=== PATIENT | female | born 1995 | race Caucasian/White ===

== ENCOUNTER 2017-11-29 21:20 | Emergency (ER) | payer OTHER ==
[~2017-11-29] VITALS: Ht 175.3 cm; Wt 103.3 kg
[2017-11-29 21:26] VITALS: TEMP 37.9; Ht 175.3 cm; Wt 103.3 kg
[2017-11-29] MEDS ORDERED: AMOX875T PO (21:55)
[2017-11-29] MEDS ORDERED: AMOXICIL/CLAVU 875MG HOME PACK PO ONE (22:00)
[2017-11-29 22:17] VITALS: BP 137/84; PULSE 76; O2SAT 98
--- NOTE | 2017-11-30 07:19 | EMERGENCY ROOM VISIT NOTE ---
History First contact with patient: 21:35 Chief Complaint: EAR PAIN Stated Complaint: SEVERE EAR PAIN, PRESSURE LT EAR History of Present Illness The patient is a 22 year old female who presents to the Emergency Room with complaints of worsening bilateral ear pain over the past several days. The patient states that about 12 hours ago she went to an urgent care clinic and was diagnosed with viral infection. She was given an inhaler, but states that her pain has significantly worsened since that visit. She has not taken anything [id number] for pain control. The patient considers his of usually healthy and is unable to rest because of the pain. She rates the discomfort a 7/10. She does not have chest pain, chest tightness, short of breath, or abdominal pain. Review of Systems More than 10 systems were reviewed and otherwise negative with the exception of history of present illness. Past Medical/Surgical History Medical Problems: (1) Anxiety Family History Heart disease Social History Smoking Status: Never Smoker Marital Status: single Housing Status: unknown Occupation Status: employed Current/Historical Medications Scheduled Amoxicillin & Pot Clavulanate (Augmentin 875-125 mg), 1 TAB PO BID Physical Exam Vital Signs Date Time Temp Pulse Resp B/P (MAP) Pulse Ox O2 Delivery O2 Flow Rate FiO2 11/29/17 22:17 76 137/84 98 11/29/17 21:26 37.9 89 20 138/82 97 Room Air Physical Exam VITALS: Vitals are noted on the nurse's note and reviewed by myself. Vital signs stable. GENERAL: Well-developed, well-nourished, white female, who is in no acute distress and resting comfortably. Patient is cooperative with the examination. HEAD: Positive bilateral maxillary sinus tenderness on percussion EARS: External ear normal. External auditory canals clear. The right TM is pearly. Left TM is with purulent material appreciated behind the TM. TM is not bulging. No mastoid tenderness. EYES: Pupils equal round and reactive to light and accommodation. Conjunctivae without injection, sclerae without icterus. Extraocular movements intact. NOSE: Patent, turbinates without inflammation or discharge. MOUTH: Mucous membranes moist. Tonsils are not enlarged. Pharynx without erythema, blood, or exudate. Uvula midline. Airway patent. NECK: Supple without nuchal rigidity. No lymphadenopathy. No thyromegaly. Cervical spine is nontender. HEART: Regular rate and rhythm without murmurs gallops or rubs. LUNGS: Clear to auscultation bilaterally without wheezes, rales or rhonchi. No retractions or accessory muscle use. Medical Decision & Procedures Medications Administered Medications (Trade) Dose Ordered Sig/Josemanuel Route Start Time Stop Time Status Last Admin Dose Admin Amoxicillin/ Clavulanate Potassium (Augmentin 875MG Home Pack) [facility] ONCE PO 11/29/17 22:00 11/29/17 22:01 DC 11/29/17 22:[address] [facility] ED Course Physical exam and history were performed. Nursing notes, EMR, and Medication List were personally reviewed. Patient appears to have left ear pain worsening over the past several hours. On examination she does have purulent appearing material behind the tympanic membrane. The TM itself is not with active infection, however the patient does have maxillary sinus tenderness on percussion. I suspect that she has an acute sinusitis causing her symptoms. The patient will be started on Augmentin and given a continuation prescription of the same. She is to follow with her primary care physician in the next few days for recheck. She was otherwise invited back here with any new, worsening, or concerning symptoms. The chart was completed utilizing [employer] Speech Voice Recognition Software. Grammatical errors, random word insertions, pronoun errors, and incomplete sentences are an occasional consequence of this system due to software limitations, ambient noise, and hardware issues. Any formal questions or concerns about the content, text, or information contained within the body of this dictation should be directly addressed to the provider for clarification. . Medical Decision Differential diagnosis includes, but is not limited to: Sinusitis, otitis, pharyngitis, viral infection, and others Impression Primary Impression: Acute sinusitis Additional Impression: Left ear pain Departure Information Dispostion Home / Self-Care Condition GOOD Prescriptions Amoxicillin & Pot Clavulanate (Augmentin 875-125 mg) 1 Tab Tab 1 TAB PO BID for 9 Days, #18 TAB Prov: Williams Mcneil PA-C 11/29/17 Forms HOME CARE DOCUMENTATION FORM, IMPORTANT VISIT INFORMATION Patient Instructions My [facility] Additional Instructions You were seen and evaluated today on an emergency basis only. This is not a substitute for, or an effort to provide, complete comprehensive medical care. It is not possible to recognize and treat all injuries or illnesses in a single emergency department visit. For this reason it is recommended that you followup with your primary care physician with any ongoing or persistent symptoms. Amoxicillin Clavulanate (Augmentin) 875mg: Take one pill twice daily for 10 total days for your infection. All antibiotics can cause diarrhea. If this occurs and you feel worse or it does not resolve in 1-2 days follow up with your doctor or return to the Emergency Department as this could be signs of serious underlying problems. Any medication can cause an allergic reaction, stop the pills immediately and return to the ER for rash, hives, breathing difficulties, or swelling. For baseline pain relief you may alternate ibuprofen and acetaminophen every 4 hours for pain control. Take 600 mg ibuprofen (Advil) and then 4 hours later take 1000 mg acetaminophen (Tylenol). Do not take more than 3000 mg acetaminophen in a single day. You are welcome to return to the emergency department anytime with new, worsening, or concerning symptoms. Problem Qualifiers
== END 2017-11-29 22:18 | disposition home or self-care (01) ==
LOC: C.EDB 21:21 → C.EDD 22:18
DX: J01.90 Acute sinusitis, unspecified (principal); H92.02 Otalgia, left ear; F41.9 Anxiety disorder, unspecified; Z82.49 Family history of ischemic heart disease and other diseases of the circulatory system

== ENCOUNTER 2019-08-22 11:02 | Observation (INO) ==
--- OUTSIDE RECORDS SUMMARY | 2019-08-22 11:05 | External Medical Summary | Continuity of Care Document ---
:1995 Author Name Bucky Gauthier Address Unavailable Unavailable , Care Team Providers Name Role Phone Unavailable Unavailable Unavailable Nata Patino M.D.. Unavailable [email or web address] Nata PATINO M.D. Unavailable Unavailable Unavailable Unavailable Unavailable Problems Anxiety (300.00) (F41.9) Dysmenorrhea (625.3) (N94.6) Overweight (278.02) (E66.3) Allergies and Adverse Reactions No Known Drug Allergies (Allergy) Medications Rafaela 3-0.03 MG Oral Tablet; take 1 tablet by mouth on ce daily as directed Abrahan Patino Start: 26-Jun-2012 Quantity: 84 Refills: 3 Sertraline HCl - 25 MG Oral Tablet; Take 2 tablets mckay Abrahan Grant Start: 11-Apr-2013 Quantity: 60 Refills: 1 Sertraline HCl - 25 MG Oral Tablet; take 1 tablet by m out once daily Abrahan Patino Start: 15-Oct-2013 Quantity: 30 Refills: 4 Sertraline HCl - 50 MG Oral Tablet; take 1 tablet by mouth once daily as directed Abrahan Patino Start: 15-Oct-2013 Quantity: 30 Refills: 4 Procedures History of Tonsillectomy With Adenoidectomy Status: Completed History of Myringotomy - With Ventilating Tube Insertion Status: Completed Immunizations DTaP DTaP DTaP DTaP DTaP HIB HIB HIB HIB Hepatitis B Hepatitis B Hepatitis B Polio Polio Polio MMR MMR DTaP On: 1993 HIB On: 1993 Hepatitis B On: 1993 IPV On: 1993 DTaP On: 1993 HIB On: 1993 Hepatitis B On: 1993 IPV On: 1993 DTaP On: 20-Jul-1994 HIB On: 20-Jul-1994 Hepatitis B On: 20-Jul-1994 HIB On: 01-Oct-1994 MMR On: 01-Oct-1994 DTaP On: 15-Nov-1994 IPV On: 15-Nov-1994 DTaP On: 02-Aug-2000 MMR On: 02-Aug-2000 FluMist LIQD On: 27-Jul-2010 15:00 Lot #: [id number], [employer] Menactra Intramuscular Injectable On: 26-Apr-2011 12:22 Lot #: [id number], [employer] PA[employer] Tdap (Adacel) On: 26-Apr-2011 12:23 Lot #: [id number], [employer]FI PA[employer]UR HPV (Gardasil) On: 26-Apr-2011 12:21 Lot #: [id number], [employer] Hepatitis A On: 26-Apr-2011 12:21 Lot #: [id number], [employer] Varicella Not Administered Family History Father Family history of Alcoholism Status: Active Family history of Gastric Cancer (V16.0) Status: Active Mother Family history of Depression Status: Active Social History - Smoking Status Never smoker Plan of Treatment Planned Observations Planned Goals not documented Results No Known Results Results not documented
[2019-08-22] MEDS ORDERED: SODIUM CHLORIDE 0.9% 1000ML 1,000 ML IV ONE (11:39)
[2019-08-22 11:57] LABS: Appearance Urine Clear (Clear); Bilirubin Urine Negative (Negative); Blood Urine Negative (Negative); Color Urine Dark Yellow; Glucose Urine UA Negative (Negative); Ketones Urine Negative (Negative); Leukocyte Esterase Urine Negative (Negative); Nitrite Urine Negative (Negative); Protein Urine Negative (Negative); Specific Gravity Urine 1.024 (1.000-1.030); Urobilinogen Urine Negative (Negative)
[2019-08-22 11:58] LABS: Basophils # (auto) 0.02 K/uL (0-0.2); Basophils % (auto) 0.1 %; Eosinophils # (auto) 0.05 K/uL (0-0.5); Eosinophils % (auto) 0.4 %; Hematocrit (blood only) 38.4 % (37-47); Hemoglobin 13.2 g/dL (12.0-16.0); Immature Granulocytes # (auto) 0.03 K/uL (0.00-0.02); Immature Granulocytes % (auto) 0.2 %; Lymphocytes # (auto) 0.65 K/uL (1.2-3.4); Lymphocytes % (auto) 4.8 %; Mean Corpuscular Hemoglobin 29.5 pg (25-34); Mean Corpuscular Hgb Conc 34.4 g/dL (32-36); Mean Corpuscular Volume 85.9 fL (80-100); Mean Platelet Volume 9.9 fL (7.4-10.4); Monocytes # (auto) 0.65 K/uL (0.11-0.59); Monocytes % (auto) 4.8 %; Neutrophils % (auto) 89.7 %; Platelet Count 221 K/uL (130-400); RDW Coefficient of Variation 12.8 % (11.5-14.5); RDW Standard Deviation 40.6 fL (36.4-46.3); Red Blood Count 4.47 M/uL (4.2-5.4)
--- NOTE | 2019-08-22 12:08 | CT Scan Report ---
CT abd pelvis wo con CT DOSE: 967.60 mGycm HISTORY: Pain Pt c/o flank pain TECHNIQUE: Multiaxial CT images of the abdomen and pelvis were performed without contrast. A dose lo wering technique was utilized adhering to the principles of ALARA. COMPARISON STUDY: None. FINDINGS: Lung bases are clear. Liver spleen and pancreas are grossly unremarkable. No evidence for g allbladder distention. Kidneys negative for calcification or hydronephrosis. Nonobstructive bowel pattern. The appendix is top normal at 7 mm in maximum diameter. No significant periappendiceal infiltrative change. Retroflexed uterus with an intrauterine device within the central canal. IMPRESSION: 1. Appendix top normal at 7 mm with no significant periappendiceal infiltrative change. 2. The abdomen and pelvis is otherwise negative. The above report was generated using voice recognition software. It may contain grammatical, syntax or spelling errors. Electronically signed by: Dejan Hanna M.D. 08/22/2019 12:07 PM
[2019-08-22 12:25] LABS: Albumin Level 3.9 gm/dl (3.4-5.0); BUN Creatinine Ratio 20.2 (10-20); Calcium 8.9 mg/dl (8.5-10.1); Creatinine Clr Calc Pharmacy 140.8 ml/min; Est GFR (African American) 116.2; Est GFR (Non-African American) 100.2; Potassium 4.1 mmol/L (3.5-5.1)
[2019-08-22 12:30] LABS: Albumin Globulin Ratio 1.1 (0.9-2); Bilirubin,Total 0.3 mg/dl (0.2-1); Globulin 3.5 gm/dl (2.5-4.0); Total Protein 7.4 gm/dl (6.4-8.2)
[2019-08-22] MEDS ORDERED: cefOXitin 2,000 MG/60 ML BAG IV STA (13:43)
[2019-08-22 13:57] LABS: Pregnancy Test, Serum Negative (Negative)
[2019-08-22] MEDS ORDERED: ONDANSETRON INJ 2 MG/ML 2 ML VIAL IV STA (14:08)
--- NOTE | 2019-08-22 14:44 | History & Physical Report ---
Date of Service August 22, 2019 Assessment & Plan (1) Appendicitis: This patient has pain that began centrally and now is in the right lower quadrant which is consistent with appendicitis. Her CAT scan is also highly suggestive although there is no periappendiceal inflammation her symptoms are less than 12 hours old. She has a mild elevation of her white blood cell count. She also has some right lower quadrant tenderness. I explained the options of appendectomy versus observation with or without antibiotics. We discussed the laparoscopic appendectomy and the possible need to convert to an open procedure and some of the complications associated with those procedures. She has chosen surgery. I answered her questions. She has signed a consent form. Present on Admission?: Yes History of Present Illness Chief Complaint: Right lower quadrant pain Primary Care Provider: Ryan Heather SingerDO Is a 24-year-old female who presented to the emergency room with a complaint of pain that began this morning. It was generalized at first in the surrounding periumbilical region. It then migrated to the right lower side where it is located now. Does not radiate around to her back. She had sweats and chills earlier today but did not take her temperature. She had a diarrheal bowel movement this morning. Her bowels are normally formed and she had no change in her bowel pattern. She had no melena or hematochezia. She denies dysuria and hematuria. Allergies Allergy/AdvReac Type Severity Reaction Status Date / Time shrimp Allergy Vomiting Verified 08/22/19 12:42 Home Medications Home Medications Medication Instructions Recorded Confirmed Type cyclobenzaprine 10 mg PO BID PRN 08/22/19 08/22/19 History diclofenac sodium 75 mg PO BIDM 08/22/19 08/22/19 History escitalopram oxalate 10 mg PO QAM 08/22/19 08/22/19 History levonorgestrel [Mirena] 1 device INTRAUTERINE DAILY 08/22/19 08/22/19 History Past Med/Surg History Medical History Anxiety (Chronic) Acute sinusitis (Acute) Headache (Acute) Left ear pain (Acute) (Acute) Family History Other No pertinent family history in first degree relatives Social History Preferred Language: German Feels Safe at Home: Yes Smoking Status: Former smoker Review of Systems Review of Systems: All systems reviewed & are unremarkable except as noted in HPI & below Physical Exam Constitutional: no acute distress Neck: trachea midline Respiratory: normal respiratory effort, lungs clear to auscultation Cardiovascular: Rate/Rhythm: regular rate and regular rhythm Gastrointestinal (Abdomen): Inspection/Auscultation: abdomen normal to inspe ction and normal bowel sounds; abdomen not distended Percussion/Palpation: + abdomen tender (Mild tenderness in the medial aspect of the right lower quadrant to moderate palpation) and abdomen soft; no abdominal mass Skin: no rashes, warm and dry Lymphatic: no cervical lymphadenopathy Results & Data Vital Signs (Past 12 Hours) Vital Signs Temp Pulse Pulse Resp BP BP Pulse Ox 08/22/19 14:12 37.0 C 79 20 138/63 100 08/22/19 12:44 72 16 122/53 L 98 08/22/19 12:02 97 08/22/19 11:16 36.9 C 90 20 122/74 100 Laboratory Results 08/22/19 08/22/19 08/22/19 Range/Units 13:05 11:48 11:42 WBC (4.8-10.8) K/uL RBC (4.2-5.4) M/uL Hgb (12.0-16.0) g/dL Hct (37-47) % MCV (80-100) fL MCH (25-34) pg MCHC (32-36) g/dL RDW Std Deviation (36.4-46.3) fL RDW Coeff of Alta (11.5-14.5) % Plt Count (130-400) K/uL MPV (7.4-10.4) fL Immature Gran % (Auto) % Neut % (Auto) % Lymph % (Auto) % Stephens % (Auto) % Eos % (Auto) % Baso % (Auto) % Immature Gran # (Auto) (0.00-0.02) K/uL Neut # (Auto) (1.4-6.5) K/uL Lymph # (Auto) (1.2-3.4) K/uL Stephens # (Auto) (0.11-0.59) K/uL Eos # (Auto) (0-0.5) K/uL Baso # (Auto) (0-0.2) K/uL Sodium 137 (136-145) mmol/L Potassium 4.1 (3.5-5.1) mmol/L Chloride 107 (98-107) mmol/L Carbon Dioxide 26 (21-32) mmol/L Anion Gap 4.0 (3-11) BUN 16 (7-18) mg/dl Creatinine 0.81 (0.6-1.2) mg/dl Est Cr Clr Drug Dosing 140.8 ml/min Est GFR ( Amer) 116.2 Est GFR (Non-Af Amer) 100.2 BUN/Creatinine Ratio 20.2 H (10-20) Glucose 104 H (70-99) mg/dl Calcium 8.9 (8.5-10.1) mg/dl Total Bilirubin 0.3 (0.2-1) mg/dl AST 18 (15-37) U/L ALT 22 (12-78) U/L Alkaline Phosphatase 73 (45-117) U/L Total Protein 7.4 (6.4-8.2) gm/dl Albumin 3.9 (3.4-5.0) gm/dl Globulin 3.5 (2.5-4.0) gm/dl Albumin/Globulin Ratio 1.1 (0.9-2) Lipase 167 (73-393) U/L HCG, Qual Negative (Negative) Urine Color Dark Yellow Urine Appearance Clear (Clear) Urine pH 8.0 H (4.5-7.5) Ur Specific [place] 1.024 (1.000-1.030) Urine Protein Negative (Negative) Urine Glucose (UA) Negative (Negative) Urine Ketones Negative (Negative) Urine Blood Negative (Negative) Urine Nitrite Negative (Negative) Urine Bilirubin Negative (Negative) Urine Urobilinogen Negative (Negative) Ur Leukocyte Esterase Negative (Negative) 08/22/19 Range/Units 11:42 WBC 13.60 H (4.8-10.8) K/uL RBC 4.47 (4.2-5.4) M/uL Hgb 13.2 (12.0-16.0) g/dL Hct 38.4 (37-47) % MCV 85.9 (80-100) fL MCH 29.5 (25-34) pg MCHC 34.4 (32-36) g/dL RDW Std Deviation 40.6 (36.4-46.3) fL RDW Coeff of Alta 12.8 (11.5-14.5) % Plt Count 221 (130-400) K/uL MPV 9.9 (7.4-10.4) fL Immature Gran % (Auto) 0.2 % Neut % (Auto) 89.7 % Lymph % (Auto) 4.8 % Stephens % (Auto) 4.8 % Eos % (Auto) 0.4 % Baso % (Auto) 0.1 % Immature Gran # (Auto) 0.03 H (0.00-0.02) K/uL Neut # (Auto) 12.20 H (1.4-6.5) K/uL Lymph # (Auto) 0.65 L (1.2-3.4) K/uL Stephens # (Auto) 0.65 H (0.11-0.59) K/uL Eos # (Auto) 0.05 (0-0.5) K/uL Baso # (Auto) 0.02 (0-0.2) K/uL Sodium (136-145) mmol/L Potassium (3.5-5.1) mmol/L Chloride (98-107) mmol/L Carbon Dioxide (21-32) mmol/L Anion Gap (3-11) BUN (7-18) mg/dl Creatinine (0.6-1.2) mg/dl Est Cr Clr Drug Dosing ml/min Est GFR ( Amer) Est GFR (Non-Af Amer) BUN/Creatinine Ratio (10-20) Glucose (70-99) mg/dl Calcium (8.5-10.1) mg/dl Total Bilirubin (0.2-1) mg/dl AST (15-37) U/L ALT (12-78) U/L Alkaline Phosphatase (45-117) U/L Total Protein (6.4-8.2) gm/dl Albumin (3.4-5.0) gm/dl Globulin (2.5-4.0) gm/dl Albumin/Globulin Ratio (0.9-2) Lipase (73-393) U/L HCG, Qual (Negative) Urine Color Urine Appearance (Clear) Urine pH (4.5-7.5) Ur Specific [place] (1.000-1.030) Urine Protein (Negative) Urine Glucose (UA) (Negative) Urine Ketones (Negative) Urine Blood (Negative) Urine Nitrite (Negative) Urine Bilirubin (Negative) Urine Urobilinogen (Negative) Ur Leukocyte Esterase (Negative) Diagnostic Findings CT abd pelvis wo con CT DOSE: 967.60 mGycm HISTORY: Pain Pt c/o flank pain TECHNIQUE: Multiaxial CT images of the abdomen and pelvis were performed without contrast. A dose lowering technique was utilized adhering to the principles of ALARA. COMPARISON STUDY: None. FINDINGS: Lung bases are clear. Liver spleen and pancreas are grossly unremarkable. No evidence for gallbladder distention. Kidneys negative for calcification or hydronephrosis. Nonobstructive bowel pattern. The appendix is top normal at 7 mm in maximum diameter. No significant periappendiceal infiltrative change. Retroflexed uterus with an intrauterine device within the central canal. IMPRESSION: 1. Appendix top normal at 7 mm with no significant periappendiceal infiltrative change. 2. The abdomen and pelvis is otherwise negative.
[2019-08-22] MEDS ORDERED: BUPIVACAINE 0.5 % 5 MG/1 ML MPF 30ML VIAL ONE (14:53)
[2019-08-22] MEDS ORDERED: CEFAZOLIN 250 MG/ML 1 GM VIAL ONE (14:53)
[2019-08-22] MEDS ORDERED: HEPARIN (PORCINE) 1000 UNIT/ML 10 ML (CATH LAB USE ONLY) ONE (14:53)
[2019-08-22] MEDS ORDERED: SUCCINYLCHOLINE CHLORIDE 20 MG/ML 10 ML VIAL ONE (14:55)
[2019-08-22] MEDS ORDERED: ePHEDrine sulfate 50 MG/ML AMP ONE (14:55)
[2019-08-22] MEDS ORDERED: fentaNYL citrate 100 MCG/2 ML VIAL ONE ×2 (14:55)
[2019-08-22] MEDS ORDERED: ONDANSETRON INJ 2 MG/ML 2 ML VIAL ONE (14:55)
[2019-08-22] MEDS ORDERED: PROPOFOL IV EMULSION 10 MG/ML 20 ML VIAL IV ONE ×2 (14:55→16:54)
[2019-08-22] MEDS ORDERED: NEOSTIGMINE METHYLSULFATE 5 MG/5 ML SYR ONE (14:55)
[2019-08-22] MEDS ORDERED: LIDOCAINE HCL 2% 2 ML VIAL/AMP(20MG/ML) INFIL ONE (14:55)
[2019-08-22] MEDS ORDERED: DEXAMETHASONE SOD INJ 4 MG/ML VIAL ONE ×2 (14:55→16:55)
[2019-08-22] MEDS ORDERED: PHENYLEPHRINE HCL 10 MG/ML VIAL ONE (14:55)
[2019-08-22] MEDS ORDERED: GLYCOPYRROLATE 0.2 MG/ML VIAL ONE (14:55)
[2019-08-22] MEDS ORDERED: MIDAZOLAM HCL 1 MG/ML 2ML VIAL ONE (14:56)
--- NOTE | 2019-08-22 15:11 | Anesthesiology Consultation ---
Date of Service August 22, 2019 Assessment & Plan Chart Review Chart Review: Acceptable Risk for Surgery Consults Requested none History Surgery Operation Date: 08/22/19 13:30 Proposed Procedures p Laparoscopic Appendectomy - Dejan Wilkes MD Height/Weight Height: 5 ft 9 in Weight: 112.6 kg Allergies Allergy/AdvReac Type Severity Reaction Status Date / Time shrimp Allergy Vomiting Verified 08/22/19 12:42 Medications Home Medications Medication Instructions Recorded Confirmed Last Taken cyclobenzaprine 10 mg PO BID PRN 08/22/19 08/22/19 08/21/19 diclofenac sodium 75 mg PO BIDM 08/22/19 08/22/19 08/21/19 escitalopram oxalate 10 mg PO QAM 08/22/19 08/22/19 08/21/19 levonorgestrel [Mirena] 1 device INTRAUTERINE DAILY 08/22/19 08/22/19 08/22/19 Past Medical History Medical History Anxiety (Chronic) Acute sinusitis (Acute) Headache (Acute) Past Family History Family History Other No pertinent family history in first degree relatives Social History Smoking Status: Former smoker Physical Exam Vital Signs Last Vital Signs Temp 37.1 C 08/22/19 15:17 Pulse 90 08/22/19 15:17 Resp 20 08/22/19 15:17 BP 121/93 08/22/19 15:17 Pulse Ox 100 08/22/19 15:17 Testing Laboratory Results 08/22/19 11:42 08/22/19 11:42 Urine Color Dark Yellow 08/22/19 11:48 Urine Appearance Clear (Clear) 08/22/19 11:48 Urine pH 8.0 (4.5-7.5) H 08/22/19 11:48 Ur Specific [place] 1.024 (1.000-1.030) 08/22/19 11:48 Urine Protein Negative (Negative) 08/22/19 11:48 Urine Glucose (UA) Negative (Negative) 08/22/19 11:48 Urine Ketones Negative (Negative) 08/22/19 11:48 Urine Nitrite Negative (Negative) 08/22/19 11:48 Ur Leukocyte Esterase Negative (Negative) 10/24/19 11:48 hcg negative 08/22/2019.
[2019-08-22] MEDS ORDERED: ePHEDrine sulfate 50 MG/ML AMP IV PRN (15:27)
[2019-08-22] MEDS ORDERED: ONDANSETRON INJ 2 MG/ML 2 ML VIAL IV PRN ×2 (15:27→18:03)
[2019-08-22] MEDS ORDERED: ATROPINE SULFATE 0.1 MG/ML 10ML SYR IV PRN (15:27)
[2019-08-22] MEDS ORDERED: HYDROmorphone INJ 2 MG/ML SYR/VIAL IV PRN (15:27)
[2019-08-22] MEDS ORDERED: METOCLOPRAMIDE HCL INJ 5 MG/ML 2 ML VIAL IV PRN (15:27)
[2019-08-22] MEDS ORDERED: PROMETHAZINE HCL 12.5 MG in SODIUM CHLORIDE 0.9% 50 ML IV PRN (15:27)
--- NOTE | 2019-08-22 16:47 | Post Operative Brief Note ---
Immediate Post Op Note v1 Date of Surgery August 22, 2019 Pre & Post Diagnosis Operation Date: 08/22/19 13:30 Pre-Op Diagnosis: Acute Appendicitis Post-Op Diagnosis: Acute Appendicitis I identified the patient and participated in the time-out.: Yes Procedure Operation Date: 08/22/19 13:30 Actual Procedures p Laparoscopic Appendectomy(Not Applicable) - Dejan Wilkes MD Surgeon Dejan Wilkes MD Fountain Supervisor Tashia Resendez PA-C Estimated Blood Loss 5 Findings Consistent with Post-Op Diagnosis Specimens Appendix Drains Ma Catheter Anesthesia Type General Complications none
[2019-08-22] MEDS: fentaNYL citrate 100 MCG/2 ML VIAL IV PRN ×2 (17:20→17:25)
--- NOTE | 2019-08-22 17:51 | Anesthesiology Progress Note ---
Date of Service August 22, 2019 Anesthesia Post Procedure Vital Signs Vital Signs: Temp Pulse Pulse Pulse Pulse Resp BP 08/22/19 17:44 36.6 C 65 17 08/22/19 17:35 59 L 12 08/22/19 17:25 67 14 08/22/19 17:15 85 16 08/22/19 17:05 36.7 C 73 16 08/22/19 15:17 37.1 C 90 20 08/22/19 14:12 37.0 C 79 20 08/22/19 12:44 72 16 08/22/19 12:02 08/22/19 11:16 36.9 C 90 20 122/74 BP Pulse Ox 08/22/19 17:44 123/68 100 08/22/19 17:35 124/68 94 08/22/19 17:25 126/62 97 08/22/19 17:15 119/64 100 08/22/19 17:05 122/70 100 08/22/19 15:17 121/93 100 08/22/19 14:12 138/63 100 08/22/19 12:44 122/53 L 98 08/22/19 12:02 97 08/22/19 11:16 100 Pain Intensity Abdomen: Pain Intensity: 4 Transfer of Care Handoff Completed per policy Notes Mental Status: alert / awake / arousable and participated in evaluation Patient Amnestic to Procedure: Yes Nausea / Vomiting: adequately controlled Pain: adequately controlled Airway Patency, RR, SpO2: stable & adequate BP & HR: stable & adequate Hydration State: stable & adequate Anesthetic Complications: no major complications apparent
[2019-08-22] MEDS ORDERED: MoRPHine SULFATE 4 MG/ML 1 ML CARP\\VIAL IV PRN (18:03)
--- NOTE | 2019-08-22 18:03 | Operative Report ---
DATE OF OPERATION: 08/22/2019 PREOPERATIVE DIAGNOSIS: Appendicitis. POSTOPERATIVE DIAGNOSIS: Appendicitis. PROCEDURE: Laparoscopic appendectomy. SURGEON: Dejan Wilkes MD. FINDINGS: The appendix in all but the 2 cm at its base was dilated, firm and indurated. There was no evidence of perforation or abscess. The visible bowel appeared normal. The base of the appendix and the cecum at the base of the appendix were normal. TECHNIQUE: The patient was given a general anesthetic and the area was prepped and draped in the usual sterile fashion. Transverse incision was made below the umbilicus, carried down through the subcutaneous tissue to the fascia which was grasped with 2 Cyndi clamps and incised between. The peritoneum was identified, incised, and the introducer was placed bluntly. The abdomen was then insufflated to a pressure of 15 mmHg with carbon dioxide. The lower midline introducer was placed under direct vision through small skin incision. Traction was placed medially and superiorly on the cecum and the appendix was easily identified. The left lower quadrant introducer was placed under direct vision through small skin incision. Traction was placed anteriorly on the appendix and a plane was able to be established between the mesoappendix and the appendix at the base. The mesoappendix was then divided using the OMER stapler. There was bleeding from the one end of the mesoappendix and that was controlled with 2 clips. The appendix was then amputated using the Endo-OMER stapler. The appendix was placed into an Endobag and brought out through the left lower quadrant introducer site. That introducer was replaced. The staple line on the cecum was identified. There was some minimal oozing that was controlled with minimal cautery. The staple line for the mesoappendix was again inspected. There was no further bleeding. The right lower quadrant was irrigated and the irrigation removed. The areas of dissection and the staple lines were again inspected, there was no bleeding. The irrigation that entered the pelvis was removed and any irrigation was in the right upper quadrant was removed. Gas was allowed to escape and the introducers were removed. The fascia of the umbilical and left lower quadrant introducer sites was closed with interrupted 0 Vicryl. The skin of all the incisions was closed with 4-0 Monocryl in either an interrupted or running subcuticular fashion. Skin was anesthetized with 0.5% Marcaine. The skin was cleansed, dried, benzoin placed, Steri-Strips applied. Estimated blood loss was 5 mL. Sponge, needle and instrument counts were correct prior to closure. The patient tolerated the surgical procedure without complication and was transferred to recovery. I attest to the content of the Intraoperative Record and any orders documented therein. Any exception s are noted below.
[2019-08-22] MEDS: OXYCODONE/ACETAMINOPHEN 5mg/325mg TAB PO PRN ×2 (18:52→23:23)
[2019-08-22] MEDS: D5W AND 1/2NSS + 20MEQ KCL 20 MEQ/1,000 ML BAG IV SCH (18:56)
[2019-08-22] MEDS: ESCITALOPRAM OXALATE 10 MG TAB PO SCH (23:19)
[2019-08-23] MEDS: D5W AND 1/2NSS + 20MEQ KCL 20 MEQ/1,000 ML BAG IV SCH (04:33)
--- NOTE | 2019-08-23 07:03 | Emergency Department Note ---
Entered by Shant Moore acting as a scribe for Himanshu Kimbrough MD History of Present Illness General Chief complaint: Abdominal Pain Stated complaint: ABDOMINAL PAIN, URINARY ISSUES Time Seen by Provider: 08/22/19 11:24 Source: patient History of Present Illness Provider complaint: Abdominal pain Onset (ago): hour(s) (This morning ) Location: abdomen Severity: severe Pain Consistency: + colicky Maximum Pain Intensity: 5 Current Pain Intensity: 5 Associated symptoms: + nausea/vomiting and + other (Diarrhea) The patient is a 24 year old female who presents to the Emergency Room with complaints of colicky lower abdominal pain that started this morning upon awakening. The patient states she initially felt as though she needed to use the bathroom, however she was unable to and while she was trying she started having the abdominal pain. The patient then laid on the floor for about 20 minutes until the pain subsided enough for her to try to move her bowels again. The patient states she finally was able to have a BM and it was diarrhea. Since the first episode of diarrhea, the patient has had waves of severe pain as well as nausea and episodes of emesis. The patient reports that she has never had an abdominal surgery nor does she have a history of kidney stones. The patient does have an IUD in place so there is a low chance that she is . Home Medications Home Medications Medication Instructions Recorded Confirmed Type cyclobenzaprine 10 mg PO BID PRN 08/22/19 08/22/19 History diclofenac sodium 75 mg PO BIDM 08/22/19 08/22/19 History escitalopram oxalate 10 mg PO QAM 08/22/19 08/22/19 History levonorgestrel [Mirena] 1 device INTRAUTERINE DAILY 08/22/19 08/22/19 History Allergies Allergy/AdvReac Type Severity Reaction Status Date / Time shrimp Allergy Vomiting Verified 08/22/19 12:42 Past Med/Surg History Medical History Anxiety (Chronic) Acute sinusitis (Acute) Headache (Acute) Family History Other No pertinent family history in first degree relatives Social History Preferred Language: Wallisian Feels Safe at Home: Yes Smoking Status: Former smoker Review of Systems See HPI for pertinent positives & negatives. and A total of 10 systems reviewed and were otherwise negative Physical Exam Vital Signs Vital Signs - 24 hr 08/22/19 11:16 08/22/19 12:02 08/22/19 12:44 Temperature 36.9 C Temperature Source Oral Sepsis Recent Fever Within 48 Hours No Sepsis New/Unexplained Change in Mental Status No Sepsis Action Taken by Nursing No Action Required Pulse Rate 90 Pulse Rate [Left] 72 Pulse Rate [Right Finger] Pulse Rhythm Regular Pulse Rhythm [Right Finger] Pulse Strength Normal Pulse Strength [Right Finger] Respiratory Rate 20 16 Respiratory Effort / Characteristics Non-Labored Spontaneous Non-Labored Spontaneous Respiratory Depth Normal Normal Respiratory Pattern Regular Blood Pressure 122/74 Blood Pressure [Right Arm] 122/53 L Blood Pressure Mean 90 Blood Pressure Mean [Right Arm] 76 Blood Pressure Position Sitting Blood Pressure Position [Right Arm] Lying Pulse Oximetry 100 97 98 Oxygen Delivery Method Room Air Room Air Room Air 08/22/19 14:12 08/22/19 15:17 Temperature 37.0 C 37.1 C Temperature Source Oral Oral Sepsis Recent Fever Within 48 Hours Sepsis New/Unexplained Change in Mental Status Sepsis Action Taken by Nursing Pulse Rate Pulse Rate [Left] 79 Pulse Rate [Right Finger] 90 Pulse Rhythm Pulse Rhythm [Right Finger] Regular Pulse Strength Pulse Strength [Right Finger] Normal Respiratory Rate 20 20 Respiratory Effort / Characteristics Non-Labored Spontaneous Non-Labored Spontaneous Normal for Patient Respiratory Depth Normal Respiratory Pattern Regular Blood Pressure Blood Pressure [Right Arm] 138/63 121/93 Blood Pressure Mean Blood Pressure Mean [Right Arm] 88 102 Blood Pressure Position Blood Pressure Position [Right Arm] Lying Semi-fowlers Pulse Oximetry 100 100 Oxygen Delivery Method Room Air Room Air GENERAL: Awake, alert, well-appearing, in no distress HENT: Normocephalic, atraumatic. Oropharynx unremarkable. EYES: Normal conjunctiva. Sclera non-icteric. NECK: Supple. No nuchal rigidity. FROM. No masses. RESPIRATORY: Clear to auscultation. No wheezes. No rales. Normal respiratory effort. CARDIAC: Normal rate. Normal rhythm. No murmurs. No rubs. Extremities warm and well perfused. Pulses equal. No JVD. GI: Soft, non-distended. No tenderness to palpation. No rebound or guarding. No masses. RECTAL: Deferred. MUSCULOSKELETAL: Atraumatic. Chest examination reveals no tenderness. The back is symmetrical on inspection without obvious abnormality. There is no CVA tenderness to palpation. No joint edema. LOWER EXTREMITIES: Calves are equal size bilaterally and non-tender. No edema. No discoloration. NEURO: Normal sensorium. No sensory or motor deficits noted. Course 1134: Past medical records reviewed. The patient was evaluated in room A04B, and a complete history and physical examination were performed. 1343: I spoke to [facility] about the patient's case. She is going to come evaluate the patient. 1435: I spoke to Dr. Wilkes - [facility] after he and his PA evaluated the patient. He is going to accept the patient for surgical intervention. 1441: I reevaluated and updated the patient with the treatment plan. She fully understands and is agreeable with the plan. Consultations Consultation #1: I spoke to Tashia [facility] PAC about the patient's case. She is going to come evaluate the patient. Time: 13:43 Consultation #2: I spoke to Dr. Wilkes - [facility] after he and his PA evaluated the patient. He is going to accept the patient for surgical intervention. Time: 14:35 Administered Medications Escitalopram Oxalate (Lexapro Tab) 10 mg PO QAM CHEIKH Stop: 09/22/19 08:59 Last Admin: 08/22/19 23:19 Dose: 10 mg Documented by: [id number] Potassium Chloride/Dextrose/Sod Cl (D5w And 1/2nss + 20meq Kcl) 20 meq in 1,000 mls @ 100 mls/hr IV .Q10H CHEIKH Stop: 09/21/19 18:59 Last Admin: 08/23/19 04:33 Dose: 100 mls/hr Documented by: [id number] Infusion: 08/23/19 04:33 Dose: 100 mls/hr Documented by: [id number] Admin: 08/22/19 18:56 Dose: 100 mls/hr Documented by: [id number] Oxycodone/Acetaminophen (Percocet 5mg/325mg) 1 tab PO Q4H PRN PRN Reason: Pain Stop: 09/05/19 18:02 Last Admin: 08/22/19 23:23 Dose: 1 tab Documented by: [id number] Admin: 08/22/19 18:52 Dose: 1 tab Documented by: [id number] Discontinued Medications Bupivacaine HCl (Marcaine 0.5% Mpf) Confirm Administered Dose 30 ml .ROUTE .STK- MED ONE Stop: 08/22/19 14:54 Last Admin: 08/22/19 16:43 Dose: 30 ml Documented by: [id number] Cefazolin Sodium (Ancef) Confirm Administered Dose 1,000 mg .ROUTE .STK-MED ONE Stop: 08/22/19 14:54 Last Admin: 08/22/19 16:40 Dose: 1,000 mg Documented by: [id number] Fentanyl Citrate (Fentanyl Citrate) 50 mcg IV Q5M PRN PRN Reason: PACU Use Only-Pain Stop: 08/22/19 20:27 Last Admin: 08/22/19 17:25 Dose: 50 mcg Documented by: [id number] Admin: 08/22/19 17:20 Dose: 50 mcg Documented by: [id number] Heparin Sodium (Porcine) (Heparin Iv Bolus (Child Care Use Only)) Confirm Administered Dose 10,000 units .ROUTE .STK-MED ONE Stop: 08/22/19 14:54 Last Admin: 08/22/19 16:41 Dose: 5,000 units Documented by: [id number] Sodium Chloride (Nss 1000ml) 1,000 mls @ 999 mls/hr IV .Q1H1M ONE Stop: 08/22/19 12:39 Last Infusion: 08/22/19 12:51 Dose: 0 mls/hr Documented by: [id number] Admin: 08/22/19 11:48 Dose: 999 mls/hr Documented by: [id number] Cefoxitin Sodium (Mefoxin) 2,000 mg in 60 mls @ 100 mls/hr IV NOW STA Stop: 08/22/19 14:18 Last Infusion: 08/22/19 14:50 Dose: 0 mls/hr Documented by: [id number] Admin: 08/22/19 14:12 Dose: 100 mls/hr Documented by: [id number] Promethazine HCl 12.5 mg/ (Sodium Chloride) 50.5 mls @ 204 mls/hr IV ONCE PRN PRN Reason: PACU Use Only-Nausea/Vomiting Stop: 08/22/19 20:28 Last Infusion: 08/22/19 18:41 Dose: 0 mls/hr Documented by: [id number] Admin: 08/22/19 17:32 Dose: 204 mls/hr Documented by: [id number] Ondansetron HCl (Zofran) 4 mg IV NOW STA Stop: 08/22/19 14:09 Last Admin: 08/22/19 14:12 Dose: 4 mg Documented by: [id number] Ondansetron HCl (Zofran) 4 mg IV ONCE PRN PRN Reason: PACU Use Only-Nausea/Vomiting Stop: 08/22/19 20:28 Last Admin: 08/22/19 17:20 Dose: 4 mg Documented by: [id number] Medical Decision Making Differential Diagnosis Differential diagnoses includes but is not limited to gastritis, peptic ulcer disease, GERD, gallbladder disease, pancreatitis, small bowel obstruction, acute coronary syndrome, pericarditis, ischemic bowel, irritable bowel disease, irritable bowel syndrome, appendicitis, diverticulitis, malignancy, hernia, urinary tract infection, torsion, /ectopic , perforation, trauma, infectious. Medical Records Attestation: I reviewed the patient's medical records. Home Medications Current Medication List: was personally reviewed by me Laboratory Data Attestation: I reviewed the patient's lab results. Result diagrams: 08/22/19 11:42 08/22/19 11:42 Lab Results 08/22/19 08/22/19 08/22/19 Range/Units 11:42 11:42 11:48 WBC 13.60 H (4.8-10.8) K/uL RBC 4.47 (4.2-5.4) M/uL Hgb 13.2 (12.0-16.0) g/dL Hct 38.4 (37-47) % MCV 85.9 (80-100) fL MCH 29.5 (25-34) pg MCHC 34.4 (32-36) g/dL RDW Std Deviation 40.6 (36.4-46.3) fL RDW Coeff of Alta 12.8 (11.5-14.5) % Plt Count 221 (130-400) K/uL MPV 9.9 (7.4-10.4) fL Immature Gran % (Auto) 0.2 % Neut % (Auto) 89.7 % Lymph % (Auto) 4.8 % [place] % (Auto) 4.8 % Eos % (Auto) 0.4 % Baso % (Auto) 0.1 % Immature Gran # (Auto) 0.03 H (0.00-0.02) K/uL Neut # (Auto) 12.20 H (1.4-6.5) K/uL Lymph # (Auto) 0.65 L (1.2-3.4) K/uL [place] # (Auto) 0.65 H (0.11-0.59) K/uL Eos # (Auto) 0.05 (0-0.5) K/uL Baso # (Auto) 0.02 (0-0.2) K/uL Sodium 137 (136-145) mmol/L Potassium 4.1 (3.5-5.1) mmol/L Chloride 107 (98-107) mmol/L Carbon Dioxide 26 (21-32) mmol/L Anion Gap 4.0 (3-11) BUN 16 (7-18) mg/dl Creatinine 0.81 (0.6-1.2) mg/dl Est Cr Clr Drug Dosing 140.8 ml/min Est GFR ( Amer) 116.2 Est GFR (Non-Af Amer) 100.2 BUN/Creatinine Ratio 20.2 H (10-20) Glucose 104 H (70-99) mg/dl Calcium 8.9 (8.5-10.1) mg/dl Total Bilirubin 0.3 (0.2-1) mg/dl AST 18 (15-37) U/L ALT 22 (12-78) U/L Alkaline Phosphatase 73 (45-117) U/L Total Protein 7.4 (6.4-8.2) gm/dl Albumin 3.9 (3.4-5.0) gm/dl Globulin 3.5 (2.5-4.0) gm/dl Albumin/Globulin Ratio 1.1 (0.9-2) Lipase 167 (73-393) U/L HCG, Qual (Negative) Urine Color Dark Yellow Urine Appearance Clear (Clear) Urine pH 8.0 H (4.5-7.5) Ur Specific [place] 1.024 (1.000-1.030) Urine Protein Negative (Negative) Urine Glucose (UA) Negative (Negative) Urine Ketones Negative (Negative) Urine Blood Negative (Negative) Urine Nitrite Negative (Negative) Urine Bilirubin Negative (Negative) Urine Urobilinogen Negative (Negative) Ur Leukocyte Esterase Negative (Negative) 08/22/19 Range/Units 13:05 WBC (4.8-10.8) K/uL RBC (4.2-5.4) M/uL Hgb (12.0-16.0) g/dL Hct (37-47) % MCV (80-100) fL MCH (25-34) pg MCHC (32-36) g/dL RDW Std Deviation (36.4-46.3) fL RDW Coeff of Alta (11.5-14.5) % Plt Count (130-400) K/uL MPV (7.4-10.4) fL Immature Gran % (Auto) % Neut % (Auto) % Lymph % (Auto) % [place] % (Auto) % Eos % (Auto) % Baso % (Auto) % Immature Gran # (Auto) (0.00-0.02) K/uL Neut # (Auto) (1.4-6.5) K/uL Lymph # (Auto) (1.2-3.4) K/uL [place] # (Auto) (0.11-0.59) K/uL Eos # (Auto) (0-0.5) K/uL Baso # (Auto) (0-0.2) K/uL Sodium (136-145) mmol/L Potassium (3.5-5.1) mmol/L Chloride (98-107) mmol/L Carbon Dioxide (21-32) mmol/L Anion Gap (3-11) BUN (7-18) mg/dl Creatinine (0.6-1.2) mg/dl Est Cr Clr Drug Dosing ml/min Est GFR ( Amer) Est GFR (Non-Af Amer) BUN/Creatinine Ratio (10-20) Glucose (70-99) mg/dl Calcium (8.5-10.1) mg/dl Total Bilirubin (0.2-1) mg/dl AST (15-37) U/L ALT (12-78) U/L Alkaline Phosphatase (45-117) U/L Total Protein (6.4-8.2) gm/dl Albumin (3.4-5.0) gm/dl Globulin (2.5-4.0) gm/dl Albumin/Globulin Ratio (0.9-2) Lipase (73-393) U/L HCG, Qual Negative (Negative) Urine Color Urine Appearance (Clear) Urine pH (4.5-7.5) Ur Specific [place] (1.000-1.030) Urine Protein (Negative) Urine Glucose (UA) (Negative) Urine Ketones (Negative) Urine Blood (Negative) Urine Nitrite (Negative) Urine Bilirubin (Negative) Urine Urobilinogen (Negative) Ur Leukocyte Esterase (Negative) Imaging Data Radiologist's Impression: Radiology results as stated below per my review and the radiologist's interpretation: CT abd pelvis wo con CT DOSE: 967.60 mGycm HISTORY: Pain Pt c/o flank pain TECHNIQUE: Multiaxial CT images of the abdomen and pelvis were performed without contrast. A dose lowering technique was utilized adhering to the principles of ALARA. COMPARISON STUDY: None. FINDINGS: Lung bases are clear. Liver spleen and pancreas are grossly unremarkable. No evidence for gallbladder distention. Kidneys negative for calcification or hydronephrosis. Nonobstructive bowel pattern. The appendix is top normal at 7 mm in maximum diameter. No significant periappendiceal infiltrative change. Retroflexed uterus with an intrauterine device within the central canal. IMPRESSION: 1. Appendix top normal at 7 mm with no significant periappendiceal infiltrative change. 2. The abdomen and pelvis is otherwise negative. The above report was generated using voice recognition software. It may contain grammatical, syntax or spelling errors. Electronically signed by: Dejan Hanna M.D. 08/22/2019 12:07 PM Blood Pressure Blood Pressure Findings: Elevated blood pressure Blood Pressure Disposition: elevated BP felt to be situational MDM Narrative This is a 24-year-old female who presents emergency department complaining of right lower quadrant abdominal pain. Patient had serial abdominal examinations while in the emergency department. She is tender to the right lower quadrant. Using shared medical decision-making with the patient she was sent for CAT scan the abdomen pelvis. She also has an elevation in her white blood cell count. I am concerned that the patient has appendicitis based on exam white blood cell count and CAT scan. For this reason I did discuss the case with the surgeon who did agree to take the patient to the operating room. In addition the patient was also given Mefoxin. Impression & Plan Abdominal pain, Acute appendicitis, Leukocytosis Discharge Plan Visit Data *Final* Discharge Date/Time: 08/22/19 14:56 Chief Complaint: Abdominal Pain Stated Complaint: ABDOMINAL PAIN, URINARY ISSUES ED Provider: Himanshu Kimbrough Discharge Problem: Abdominal pain, Acute appendicitis, Leukocytosis Patient Disposition: Still a Patient Discharge Instructions Interventions: ED Discharge Assessment Last Done: 08/22/19 14:56 Discharge Problem: Abdominal pain Qualifiers: Abdominal location: right lower quadrant Qualified Code(s): R10.31 - Right lower quadrant pain Acute appendicitis Qualifiers: Acute appendicitis type: unspecified acute appendicitis type Qualified Code(s): K35.80 - Unspecified acute appendicitis Leukocytosis Qualifiers: Leukocytosis type: unspecified Qualified Code(s): D72.829 - Elevated white blood cell count, unspecified The scribe's documentation has been prepared under my direction and personally reviewed by me in its entirety. I confirm that the note above accurately reflects all work, treatment, procedures, and medical decision making performed by me.
--- NOTE | 2019-08-23 07:23 | Anesthesiology Progress Note ---
Date of Service August 23, 2019 Anesthesia Post Procedure Vital Signs Vital Signs: Temp Pulse Pulse Pulse Pulse Resp BP 08/23/19 03:34 36.8 C 71 16 08/22/19 23:00 37.3 C 89 18 08/22/19 21:00 37.2 C 83 14 08/22/19 20:00 37.1 C 85 14 08/22/19 19:03 36.8 C 71 16 08/22/19 18:43 36.8 C 71 18 08/22/19 17:44 36.6 C 65 17 08/22/19 17:35 59 L 12 08/22/19 17:25 67 14 08/22/19 17:15 85 16 08/22/19 17:05 36.7 C 73 16 08/22/19 15:17 37.1 C 90 20 08/22/19 14:12 37.0 C 79 20 08/22/19 12:44 72 16 08/22/19 12:02 08/22/19 11:16 36.9 C 90 20 122/74 BP BP Pulse Ox 08/23/19 03:34 114/64 98 08/22/19 23:00 118/68 98 08/22/19 21:00 140/79 97 08/22/19 20:00 145/78 H 99 08/22/19 19:03 112/67 100 08/22/19 18:43 107/57 L 100 08/22/19 17:44 123/68 100 08/22/19 17:35 124/68 94 08/22/19 17:25 126/62 97 08/22/19 17:15 119/64 100 08/22/19 17:05 122/70 100 08/22/19 15:17 121/93 100 08/22/19 14:12 138/63 100 08/22/19 12:44 122/53 L 98 08/22/19 12:02 97 08/22/19 11:16 100 Pain Intensity Abdomen: Pain Intensity: 6 Notes Mental Status: alert / awake / arousable and participated in evaluation Nausea / Vomiting: adequately controlled Pain: adequately controlled Airway Patency, RR, SpO2: stable & adequate BP & HR: stable & adequate Hydration State: stable & adequate
--- NOTE | 2019-08-23 07:54 | Surgery Progress Note ---
Date of Service August 23, 2019 Assessment & Plan (1) Appendicitis: POD # 1 s/p laparoscopic appendectomy -vitals stable, afebrile - post op pain moderate - no n/v - urinating without difficulty Plan: continue Percocet prn pain continue reg diet encouraged ambulating hallway Discharge home later this morning Discharge instructions reviewed Rx for Percocet prn pain f/u surgery office in [address] Wilkes has seen and examined pt, agrees with above Subjective pain okay if I don't move pain with movement at incision sites preoperative pain resolved no n/v, tolerated regular diet urinating without difficulty ambulating only in room Physical Exam Constitutional: WD/WN, vitals as above no acute distress Respiratory: normal respiratory effort Gastrointestinal (Abdomen): Inspection/Auscultation: abdomen not distended Percussion/Palpation: + abdomen tender (RLQ and at incision sites, appropriate postop) and abdomen soft; no guarding and abdomen not rigid Skin: no rashes, warm and dry + incision (covered with steri strips and dressing to LLQ incision spotting present) Psychiatric: A+Ox3, euthymic affect Results & Data Vital Signs (Past 12 Hours) Vital Signs Temp Pulse Resp BP BP Pulse Ox 08/23/19 07:49 36.6 C 64 16 116/69 96 08/23/19 03:34 36.8 C 71 16 114/64 98 08/22/19 23:00 37.3 C 89 18 118/68 98 08/22/19 21:00 37.2 C 83 14 140/79 97 08/22/19 20:00 37.1 C 85 14 145/78 H 99
[2019-08-23] MEDS: ESCITALOPRAM OXALATE 10 MG TAB PO SCH (11:04)
[2019-08-23 11:21] VITALS: PULSE 74; TEMP 98.2; O2SAT 98
[2019-08-23 11:53] VITALS: BP 140/79
[2019-08-23] MEDS: OXYCODONE/ACETAMINOPHEN 5mg/325mg TAB PO PRN (12:37)
--- NOTE | 2019-08-26 07:51 | Discharge Summary ---
Date of Service August 26, 2019 Admission HPI Per Admitting Provider Is a 24-year-old female who presented to the emergency room with a complaint of pain that began this morning. It was generalized at first in the surrounding periumbilical region. It then migrated to the right lower side where it is located now. Does not radiate around to her back. She had sweats and chills earlier today but did not take her temperature. She had a diarrheal bowel movement this morning. Her bowels are normally formed and she had no change in her bowel pattern. She had no melena or hematochezia. She denies dysuria and hematuria. Principal Diagnosis Early acute appendicitis Discharge Data Allergies Allergy/AdvReac Type Severity Reaction Status Date / Time shrimp Allergy Vomiting Verified 08/22/19 12:42 Consultations 08/22/19 14:51 ED Decision to Admit Stat Procedures Performed Operation Date: 08/22/19 13:30 Actual Procedures p Laparoscopic Appendectomy(Not Applicable) - Dejan Wilkes MD Ordered Studies 08/22/19 11:39 CT abd pelvis wo con Stat Hospital Course (1) Appendicitis: Patient was taken to operating room for laparoscopic appendectomy by Dr. Wilkes from the emergency department. Patient found to have early acute appendicitis without perforation or abscess. Patient tolerated procedure well and was transferred to recovery and then medical/surgical floor for postop care. Diet was advanced to regulard, PO Percocet with breakthrough IV Morphine prn pain, activity as tolerated, and incentive spirometry. POD # 1 vitals stable, afebrile, post op pain mild but controlled, preop pain resolved, tolerated regular diet. Patient was discharged home on POD # 1 in stable condition. Total Time Total Time Spent Total Time Spent (In Minutes): 20 Total Time Includes: Examination of the Patient, Discharge Planning and Medication Reconciliation Discharge Plan Discharge Items Patient Disposition: Home - Self-Care Reason For Visit: APPENDICITIS Discharge Diagnosis: Early acute appendicitis Activity: Per Instructions section Non-emergency contact: Surgeon Call non-emergency contact if: your pain is not controlled, your pain is worsening, your pain is concerning for you, you have a fever, your temperature is above 101, your wound has increased redness, your wound has increased drainage and your wound pain has increased Follow-up/Referrals: Ryan Singer, [Primary Care Provider] - Diet: Regular Addtl Attending Provider Instructions: Post-Surgical ~Discharge Instructions Activity Recommendations: - lifting limitation: (10 pounds for 2 weeks), - exercise/sex/sports limit: (nonstrenuous for 2 weeks), - driving or machine use limit: (none for 1 week), - Shower/bathe limit: (may shower beginning tonight) Diet: - Resume previous diet SPECIAL CARE INSTRUCTIONS: - May shower tonight. Let water run over area and pat dry. - Leave steri strips on for one week. - Call the surgeon's office with any questions or concerns - - (ex. temperature higher than 101 degrees F, excessive bleeding or pain). MEDICATIONS: - Resume previous medications unless instructed otherwise by your surgeon. - Ibuprofen 600 mg every 6 hours with food - Percocet 1 every 4 hours, as needed for pain FOLLOW UP VISIT: - If not already scheduled, please call the office to schedule a two week follow-up appointment. Office number Pending Studies at Discharge: Yes (appendix pathology, will be reviewed at follow up visit) Studies:: Pathology Stand-Alone Forms: My [facility], Work/School Release (Inpt), Smoking Cessation Medications and DC Order Prescriptions: New oxycodone-acetaminophen [Percocet] 5-325 mg Tablet 1 tab PO Q4H PRN (Reason: pain) Qty: 5 RF: 0 Continued cyclobenzaprine 10 mg tablet 10 mg PO BID PRN (Reason: Muscle Spasm) RF: 0 Mirena 20 mcg/24 hours (5 yrs) 52 mg Intrauterine Device 1 device intrauterine DAILY RF: 0 diclofenac sodium 75 mg tablet,delayed release (DR/EC) 75 mg PO BIDM RF: 0 escitalopram oxalate 10 mg tablet 10 mg PO QAM RF: 0 Discharge Orders: Discharge Order (Routine); Ordered 08/23/19 Ordered By: Tashia Miller/Other Patient Handouts: Appendectomy After, Appendicitis Admission Data Admit Date/Time: 08/22/19 16:59 Attending Provider: Dejan Wilkes Admit Provider: Dejan Wilkes Primary Care Provider: Ryan Singer Other Providers: Dejan Wilkes Other Interventions: Discharge Summary Assessment (RN) Last Done: 08/23/19 11:50 DC Date/Time DO NOT enter until pt leaves facility: 08/23/19 13:29
== END 2019-08-23 13:29 | disposition home or self-care (01) ==
LOC: ED 11:02 → OR 14:56 → 3N 14:56